=== PATIENT | female | born 1980 | race Caucasian/White ===

== ENCOUNTER → 2016-11-30 | Outpatient (CLI) | payer BC ==
[~2016-11-30] MED LIST: B-COTAB18 PO; CHOL1TAB42 PO; IODI1TAB PO; OMEG10007 PO; ONDA4TAB10 SL
--- NOTE | 2016-11-30 15:35 | DIAGNOSTIC IMAGING REPORT ---
MR ANGIOGRAM OF THE BRAIN CLINICAL HISTORY: Headache. Follow-up aneurysm. COMPARISON STUDY: MRI and MR angiogram of the brain dated 09/16/2015. TECHNIQUE: 3-D [id number] MR angiography of the intracranial circulation is performed. 3-D tumble views are created and assessed. IV contrast was not administered for this examination. FINDINGS: The [place] is developmentally complete. The internal carotid arteries are widely patent bilaterally, as are the anterior and middle cerebral arteries. The vertebrobasilar system and posterior cerebral arteries are widely patent. The vertebral arteries are codominant. 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 No additional aneurysm is seen. There is no high-grade stenosis or focal vessel cutoff seen throughout the intracranial circulation. The brain parenchyma is normal as visualized. IMPRESSION: 1. 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 2. Otherwise unremarkable MR angiogram of the brain. Electronically signed by: Héctor Lorenzana M.D. 11/30/2016 3:33 PM Dictated Date/Time: 11/30/2016 3:30 PM
== END | disposition home or self-care (01) ==
LOC: C.MRIBC 14:56
PROVIDERS: ATTEND Internal Medicine
DX: I67.1 Cerebral aneurysm, nonruptured (principal); R51 Headache

== ENCOUNTER → 2016-12-06 | Outpatient (CLI) | payer BC ==
--- NOTE | 2016-12-07 13:42 | DIAGNOSTIC IMAGING REPORT ---
NUCLEAR GASTRIC EMPTYING STUDY: CLINICAL HISTORY: Nausea, vomiting, indigestion. COMPARISON STUDY: None TECHNIQUE: Following the oral administration of 1.1 mCi of technetium 99m sulfur colloid in egg sandwich and 8 ounces of water, static abdominal images are performed anteriorly and posteriorly at 0 minutes, 1 hour, 2 hours, and 4 hour time intervals. Gastric emptying was calculated utilizing the geometric mean method. FINDINGS: There is approximately 54 % gastric activity remaining at the 1 hour time interval, 14 % at the 2 hour time interval (normal is less than 60%), and 0 % remaining at the 4 hour time interval (normal is less than 10%). These findings are consistent with a normal study IMPRESSION: Findings are consistent with a normal study Electronically signed by: Zach Joy M.D. 12/07/2016 1:40 PM Dictated Date/Time: 12/07/2016 1:39 PM
== END | disposition home or self-care (01) ==
LOC: C.NUCL 10:34
PROVIDERS: ATTEND Internal Medicine
DX: K30 Functional dyspepsia (principal); R68.81 Early satiety; R11.2 Nausea with vomiting, unspecified; R14.2 Eructation

== ENCOUNTER → 2017-06-27 | Outpatient (CLI) | payer OTHER ==
[~2017-06-27] MED LIST changes: -ONDA4TAB10 SL
[2017-06-27 10:02] LABS: BLOOD UREA NITROGEN 19 mg/dl (7-18); BUN/CREATININE RATIO 26.6 (10-20); CALCIUM 8.6 mg/dl (8.5-10.1); CARBON DIOXIDE 29 mmol/L (21-32); CHLORIDE 107 mmol/L (98-107); CREATININE 0.73 mg/dl (0.60-1.20); GLUCOSE 107 mg/dl (70-99); POTASSIUM 4.1 mmol/L (3.5-5.1); SODIUM 140 mmol/L (136-145)
== END | disposition home or self-care (01) ==
LOC: C.LAB1850 08:16
PROVIDERS: ATTEND Internal Medicine
DX: E04.2 Nontoxic multinodular goiter (principal); R73.9 Hyperglycemia, unspecified

== ENCOUNTER → 2017-10-01 | Outpatient (CLI) | payer OTHER ==
--- NOTE | 2017-10-02 07:43 | MAMMOGRAPHY REPORT ---
BILATERAL DIGITAL SCREENING MAMMOGRAM TOMOSYNTHESIS WITH CAD: 10/01/2017 CLINICAL HISTORY: Routine screening. Patient has no complaints. TECHNIQUE: Breast tomosynthesis in addition to standard 2D mammography was performed. Current study was also evaluated with a Computer Aided Detection (CAD) system. COMPARISON: Comparison is made to exams dated: 08/18/2016 mammogram and 10/23/2013 mammogram - [facility]. BREAST COMPOSITION: The tissue of both breasts is heterogeneously dense, which may obscure small mas ses. FINDINGS: The parenchymal pattern is unchanged. No developing mass, architectural distortion or clus ter of suspicious microcalcifications is seen in either breast. IMPRESSION: ACR BI-RADS CATEGORY 2: BENIGN There is no mammographic evidence of malignancy. A 1 year screening mammogram is recommended. The pa tient will receive written notification of the results. Approximately 10% of breast cancers are not detected with mammography. A negative mammographic report should not delay biopsy if a clinically suggestive mass is present. Taryn Ramirez M.D. ay/:10/01/2017 16:58:02 Owner Operator: Omaira Britton RT(R)(M)(BD), [facility] letter sent: Normal 1/2 BI-RADS Code: ACR BI-RADS Category 2: Benign
== END | disposition home or self-care (01) ==
LOC: C.MAMM 11:26
PROVIDERS: ATTEND Obstetrics & Gynecology
DX: Z12.31 Encounter for screening mammogram for malignant neoplasm of breast (principal)

== ENCOUNTER → 2017-12-03 | Outpatient (CLI) | payer OTHER ==
--- NOTE | 2017-12-03 09:27 | DIAGNOSTIC IMAGING REPORT ---
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 This appears unchanged dating back to the 09/16/2015 study. No additional aneurysms identified. The bilateral internal carotid arteries are otherwise unremarkable. The bilateral middle and anterior cerebral arteries are patent. The anterior communicating artery is within normal limits. The bilateral vertebral arteries, basilar and posterior cerebral arteries are within normal limits. No high-grade stenosis, dissection or proximal branch occlusion. IMPRESSION: Unchanged 3 mm saccular aneurysm is seen arising from the medial portion of the ophthalmic branch left internal carotid artery. This appears stable dating back to the study from 09/16/2015. The above report was generated using voice recognition software. It may contain grammatical, syntax or spelling errors. Electronically signed by: Sean Todd M.D. 12/03/2017 9:26 AM Dictated Date/Time: 12/03/2017 9:14 AM
== END ==
LOC: C.MRIBC 08:24
PROVIDERS: ATTEND Internal Medicine
DX: I67.1 Cerebral aneurysm, nonruptured (principal)